=== PATIENT | female | born 1985 | race Caucasian/White ===

== ENCOUNTER 2016-08-29 01:23 | Emergency (ER) | payer BC ==
[2016-08-29] MEDS ORDERED: hydrOXYzine HCl 25 MG Tab PO ONE (02:33)
--- NOTE | 2016-08-29 02:37 | EDM.PDOC ---
ED HPI GENERAL MEDICAL PROBLEM - General Chief Complaint: Cardiovascular Problem Stated Complaint: RACING HEARTBATE Time Seen by Provider: 08/29/16 01:25 Source of Information: Reports: Patient History Limitations: Reports: No Limitations - History of Present Illness INITIAL COMMENTS - FREE TEXT/NARRATIVE: c/o heart racing for 3h tonight checked her pulse and reported it had been 75 pt started citalopram 1w ago, f/u planned in 5w, treating anxiety and depression , pt not on anti-anxiety meds in past mother her as well no CP, no SOB - Related Data Allergies Allergy/AdvReac Type Severity Reaction Status Date / Time No Known Allergies Allergy Verified 08/29/16 01:49 Home Meds: Home Meds Acetaminophen/Codeine [Tylenol with Codeine No.3 300MG/30MG] 1 tab PO Q4H PRN # 15 tablet 10/05/14 [Rx] Citalopram [Celexa] 10 mg PO DAILY 08/29/16 [History] hydrOXYzine HCl [hydrOXYzine] 25 mg PO Q6H PRN #20 tab 08/29/16 [Rx] Past Medical History Other Dermatologic History: eczema on hands - Past Surgical History Other HEENT Surgeries/Procedures: no concerns Social & Family History - Tobacco Use Smoking Status *Q: Never Smoker Second Hand Smoke Exposure: No - Caffeine Use Caffeine Use: Reports: Soda - Recreational Drug Use Recreational Drug Use: No ED ROS GENERAL - Review of Systems Review Of Systems: See Below Constitutional: Reports: No Symptoms HEENT: Reports: No Symptoms Respiratory: Reports: No Symptoms Cardiovascular: Reports: No Symptoms Endocrine: Reports: No Symptoms GI/Abdominal: Reports: No Symptoms : Reports: No Symptoms Musculoskeletal: Reports: No Symptoms Skin: Reports: No Symptoms Neurological: Reports: No Symptoms Psychiatric: Reports: Anxiety Hematologic/Lymphatic: Reports: No Symptoms Immunologic: Reports: No Symptoms ED EXAM, GENERAL - Physical Exam Exam: See Below Exam Limited By: No Limitations General Appearance: Alert, WD/WN, Anxious, Mild Distress, Other (visible anxious despite nl vs, not reassured by nl labs and explanations) Ears: Normal External Exam, Hearing Grossly Normal Ear Exam: Bilateral Ear: Auricle Normal, Canal Normal, TM normal Nose: Normal Inspection, Normal Mucosa, No Blood Throat/Mouth: Normal Inspection, Normal Lips, Normal Teeth, Normal Gums, Normal Oropharynx, Normal Voice, No Airway Compromise Head: Atraumatic, Normocephalic Neck: Normal Inspection, Supple, Non-Tender, Full Range of Motion Respiratory/Chest: No Respiratory Distress, Lungs Clear, Normal Breath Sounds, No Accessory Muscle Use, Chest Non-Tender Cardiovascular: Regular Rate, Rhythm, No Edema, No Gallop, No JVD, No Murmur, No Rub GI/Abdominal: Soft, Non-Tender, No Distention, No Mass Back Exam: Normal Inspection, Full Range of Motion, NT Extremities: Normal Inspection, Normal Range of Motion, Non-Tender, Normal Capillary Refill, No Pedal Edema Neurological: Alert, Oriented, CN II-XII Intact, Normal Cognition, No Motor/ Sensory Deficits Psychiatric: Normal Mood, Anxious Skin Exam: Warm, Dry, Intact, Normal Color, No Rash Lymphatic: No Adenopathy Course - Vital Signs Last Recorded V/S: Last Vital Signs Temp 36.4 C 08/29/16 01:25 Pulse 79 08/29/16 01:25 Resp 18 08/29/16 01:25 BP 119/78 08/29/16 01:25 Pulse Ox 100 08/29/16 01:25 - Orders/Labs/Meds Orders: Active Orders 24 hr Category Date Time Status EKG Documentation Completion [RC] ASDIRECTED Care 08/29/16 01:50 Active EKG 12 Lead [EK] Routine Ther 08/29/16 01:50 Ordered Departure - Departure Time of Disposition: 02:35 Disposition: Home, Self-Care 01 Condition: Good Clinical Impression: Panic attack Prescriptions: hydrOXYzine HCl [hydrOXYzine] 25 mg PO Q6H PRN #20 tab PRN Reason: Anxiety Forms: ED Department Discharge Additional Instructions: Continue the citalopram. Take hydroxyzine 25 mg 1 tab every 6 hours as needed for anxiety and stress. See your doctor in the next week. Return to ED if you are feeling worse. - My Orders Last 24 Hours: My Active Orders 08/29/16 01:50 EKG Documentation Completion [RC] ASDIRECTED EKG 12 Lead [EK] Routine - Assessment/Plan Last 24 Hours: My Active Orders 08/29/16 01:50 EKG Documentation Completion [RC] ASDIRECTED EKG 12 Lead [EK] Routine
[2016-08-29 02:59] VITALS: BP 118/67
== END 2016-08-29 02:55 | disposition home or self-care (01) ==
LOC: FB.ED 01:23
DX: F41.0 Panic disorder [episodic paroxysmal anxiety] (principal); Z79.899 Other long term (current) drug therapy
CPT/HCPCS: 93005; 99284